=== PATIENT | female | born 1960 | race Caucasian/White ===

== ENCOUNTER 2020-08-29 20:13 | Emergency (ER) | payer OTHER ==
[2020-08-29] MEDS ORDERED: Morphine 4 MG/ML VIAL ONE (20:41)
[2020-08-29] MEDS ORDERED: Boostrix 0.5 ML (Tdap) VIAL ONE (20:42)
[2020-08-29] MEDS ORDERED: Lidocaine 1% PF 5 ML VIAL ONE ×2 (20:42)
[2020-08-29] MEDS ORDERED: Bacitracin 1 PK ONE (22:10)
== END 2020-08-29 22:26 | disposition home or self-care (01) ==
LOC: ERS 20:13
DX: S61.211A Laceration without foreign body of left index finger without damage to nail, initial encounter (principal); W22.8XXA Striking against or struck by other objects, initial encounter
CPT/HCPCS: 90471; 90715; 96372; J2270